=== PATIENT | female | born 1975 | race Caucasian/White ===

== ENCOUNTER → 2020-09-22 01:40 | Outpatient (CLI) | payer OTHER, SELFPAY ==
[2020-09-22 19:23] LABS: SARS-CoV-2 RNA PCR Negative
== END ==
PROVIDERS: PCP Emergency Medicine; Visit Provider Internal Medicine Gastroenterology
DX: Z01.812 Encounter for preprocedural laboratory examination (principal); Z20.822 Contact with and (suspected) exposure to COVID-19
CPT/HCPCS: C9803; U0003; U0005

== ENCOUNTER → 2021-01-05 12:13 | Outpatient (CLI) | payer OTHER, SELFPAY ==
--- NOTE | ~2021-01-05 | MR_ITS ---
EXAMINATION: MR brain/brain stem wo/w con DATE: 01/05/2021 13:43 INDICATION: Chronic migraine headaches. TECHNIQUE: Magnetic resonance imaging (MRI) of the brain and brainstem was performed without and with 12 mm MultiHance intravenous contrast. Sequences included sagittal and axial T1-weighted FSE, axial diffusion-weighted FS EPI, axial T2*-weighted GRE, axial T2-weighted FLAIR Propeller, and axial T2-we ighted Propeller. Postcontrast sequences included axial, sagittal, and coronal T1-weighted FSE. Appar ent diffusion coefficient (ADC) maps were created. COMPARISON: Brain MRI 02/03/2018, 07/26/2014 FINDINGS: The cerebellar tonsils extend 7 mm inferior to foramen magnum, consistent with a Chiari I m alformation. There is a 6 mm mass of fat in the hypothalamus. There are changes of mass resection in right temporal parietal region. There is no acute ischemic infarct or intracranial hemorrhage. The ve ntricles are normal in size. The orbits are normal. There is mucosal thickening in the paranasal sinu ses. The mastoid air cells are normal. IMPRESSION: 1. Changes of mass resection of right temporal parietal region. 2. Chiari I malformation. 3. 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 Reviewed, dictated and finalized at location B.
[2021-01-05 12:55] LABS: Estimated Glomerular Filt Rate > 60
== END ==
PROVIDERS: PCP Emergency Medicine
DX: G93.5 Compression of brain (principal); G43.709 Chronic migraine without aura, not intractable, without status migrainosus; E23.7 Disorder of pituitary gland, unspecified; Z98.890 Other specified postprocedural states
CPT/HCPCS: 70553; A9577

== ENCOUNTER → 2021-09-24 11:15 | Outpatient (CLI) | payer OTHER, SELFPAY ==
--- NOTE | ~2021-09-24 | US_ITS ---
EXAMINATION: US abdomen complete DATE: 09/24/2021 11:54 INDICATION: Elevated bilirubin TECHNIQUE: Multiple grayscale and Doppler ultrasound images of the abdomen were obtained. COMPARISON: 10/23/1999 FINDINGS: The head, body, and tail of the pancreas are normal. The liver is normal with normal echoge nicity and echotexture. No surface nodularity. Normal hepatopetal flow in the main portal vein. The g allbladder is surgically absent. The normal common bile duct measures 6 mm. There was no sonographic Avalos sign. The visualized portions of the aorta and inferior vena cava are normal. The right kidney measures 10.1 x 3.6 x 4.2 cm. The left kidney measures 9 x 5.4 x 4 cm. The kidneys d emonstrate normal parenchymal echogenicity. There is no hydronephrosis. The spleen is normal in appea marcial and measures 11.4 cm. IMPRESSION: 1. No sonographic correlate for the patient's symptoms. Reviewed, dictated and finalized at location B.
== END ==
PROVIDERS: PCP Emergency Medicine; Visit Provider Emergency Medicine
DX: K76.9 Liver disease, unspecified (principal)
CPT/HCPCS: 76700

== ENCOUNTER 2023-03-20 01:01 | Day surgery (SDC) | payer OTHER, SELFPAY ==
[2023-03-15 15:35] VITALS: BMI 25.7
[2023-03-20 07:56] VITALS: BP 124/82; PULSE 80; RESP 18; TEMP 36.1; O2SAT 100
[2023-03-20] MEDS: LACTATED RINGERS 1,000 ML 150 ML IV CONT (08:06)
--- NOTE | 2023-03-20 08:23 | PM.HPGS ---
History of Present Illness History of Present Illness Consent: Risks, benefits, and alternatives have been discussed and questions answered. Patient agrees to proceed with procedure. Chief complaint: GERD without esophagitis Narrative: Ronda Alonzo is a 47 year old female here for first EGD, had?UGI at another facility showed reflux and hiatal hernia now using omeprazole daily (20 mg but sometimes have to take an extra one) Review of Systems Constitutional: Constitutional: Denies headache(s) and Denies weakness Eyes: Eyes: Denies blurry vision ENT: Reports Normal hearing present, Denies headache(s) and Denies neck pain Cardiovascular: Cardiovascular: Denies chest pain and Denies dyspnea Respiratory: Respiratory: Denies dyspnea Gastrointestinal: Gastrointestinal: Reports no additional gastrointestinal complaints Genitourinary: Genitourinary: Denies dysuria Musculoskeletal: Musculoskeletal: Denies neck pain Integumentary/Breasts: Skin/Breast: Denies dry skin Neurologic: Reports Normal hearing present, Denies headache(s) and Denies weakness Psychiatric: Psychiatric: Denies anxiety Endocrine: Endocrine: Denies change in body appearance Hematologic/Lymphatic: Hematologic/Lymphatic: Denies easy bleeding Allergic/Immunologic: Allergic/Immunologic: Denies urticaria PMFSH Past Medical History Medical History (Updated 03/20/23 @ 08:24 by Ector Bland MD) Benign neoplasm of brain Chronic headaches Eruption cyst GERD (gastroesophageal reflux disease) Shoulder pain Spina bifida Social History Social History (Updated 07/13/20 @ 13:08 by Janett Franklin CMA) Smoking status: Never smoker Alcohol intake: current Drinks per week: 1 Substance use: current Substance use type: marijuana Other substance usage details: ON [facility] Living arrangements: with family Occupation/Education: occupation Gender identity (if verbalized by the patient): Female Spiritual care concerns: No Meds Home Medications and Allergies Home Medications Medication Instructions Recorded Confirmed Type omeprazole 20 mg capsule,delayed 20 mg PO DAILY 06/11/20 03/15/23 History release atogepant 30 mg tablet (Qulipta) 30 mg PO DAILY 03/15/23 03/15/23 History lisdexamfetamine 20 mg capsule 20 mg PO DAILY PRN ATTENTION 03/15/23 03/15/23 History (Franky) DEFICIT onabotulinumtoxinA 200 unit unit IM [id number] MIGRAINES 10/25/23 History solution for injection (Botox) rizatriptan 10 mg tablet 10 mg PO PRN PRN Migraine Headache 03/15/23 03/15/23 History tizanidine 2 mg capsule 2 mg PO PRN PRN MIGRAINES 03/15/23 03/15/23 History zolpidem 6.25 mg tablet,extended 6.25 mg PO HS PRN Insomnia 03/15/23 03/15/23 History release,multiphase Allergies Allergy/AdvReac Type Severity Reaction Status Date / Time Penicillins Allergy Mild Gastrointestinal Verified 03/20/23 07:56 Upset Vital Signs Vital Signs - 24 hr 03/20/23 07:56 Temperature 97 F L Pulse Rate 80 Respiratory Rate 18 Blood Pressure 124/82 Pulse Oximetry 100 Oxygen Delivery Room Air Exam Const: General: comfortable and no acute distress HENMT: Face/Nose/Sinus: Normal nares present Eyes: General: appearance normal, both eyes and all related structures Neck: Neck: no JVD Resp: Auscultation: clear to auscultation bilaterally Cardio: Rate: regular rate Rhythm: regular rhythm GI: Inspection: non-distended GI Palp: Yes Soft to palpation Skin: General skin exam: normal color Neuro: General: gait normal Speech: normal speech Extrem: General: normal to inspection Psych: Mental Status: mental status grossly normal Assessment and Plan Assessment and plan (1) GERD (gastroesophageal reflux disease): Code(s): K21.9 - Gastro-esophageal reflux disease without esophagitis Status: Acute Assessment and Plan: egd with bx
--- NOTE | 2023-03-20 08:33 | P.PNAN_ITS ---
Anes - Initial Pre Proc Eval Procedure: Operation Date: 03/20/23 09:00 Proposed Procedures p Esophagogastroduodenoscopy - Ector Bland MD Date/Time: 03/20/23 08:33 Surgeon: Ector Bland MD Pre Op Diagnosis: GERD without esophagitis Patient Data Age: 47 Gender: F Height: 1.6 m Weight: 67 kg Last Vital Signs Temp 97 F L 03/20/23 07:56 Pulse 80 03/20/23 07:56 Resp 18 03/20/23 07:56 BP 124/82 03/20/23 07:56 Pulse Ox 100 03/20/23 07:56 O2 Del Method Room Air 03/20/23 07:56 Allergies Allergy/AdvReac Type Severity Reaction Status Date / Time Penicillins Allergy Mild Gastrointestinal Verified 03/20/23 07:56 Upset Home Medications Medication Instructions Recorded Confirmed Type omeprazole 20 mg capsule,delayed 20 mg PO DAILY 06/11/20 03/15/23 History release atogepant 30 mg tablet (Qulipta) 30 mg PO DAILY 03/15/23 03/15/23 History lisdexamfetamine 20 mg capsule 20 mg PO DAILY PRN ATTENTION 03/15/23 03/15/23 History (Vyvanse) DEFICIT onabotulinumtoxinA 200 unit unit IM [id number] MIGRAINES 03/15/23 History solution for injection (Botox) rizatriptan 10 mg tablet 10 mg PO PRN PRN Migraine Headache 03/15/23 03/15/23 History tizanidine 2 mg capsule 2 mg PO PRN PRN MIGRAINES 03/15/23 03/15/23 History zolpidem 6.25 mg tablet,extended 6.25 mg PO HS PRN Insomnia 03/15/23 03/15/23 History release,multiphase Patient hx anesthesia problems: none Family hx anesthesia problems: none Results Review: All pre-operative results and documents have been reviewed as part of the pre- operative evaluation. [facility] Past Medical History Medical History (Updated 03/20/23 @ 08:24 by Ector Bland MD) Benign neoplasm of brain Chronic headaches Eruption cyst GERD (gastroesophageal reflux disease) Shoulder pain Spina bifida Social History Social History (Updated 07/13/20 @ 13:08 by NAUN Alves Smoking status: Never smoker Alcohol intake: current Drinks per week: 1 Substance use: current Substance use type: marijuana Other substance usage details: ON [facility] Living arrangements: with family Occupation/Education: occupation Gender identity (if verbalized by the patient): Female Spiritual care concerns: No Anes - Eval Final PreProcedure Day of Procedure 03/20/23 08:33 Patient weight: normal Heart: regular rate and rhythm Lungs: clear to auscultation Airway: Mallampati scale class II Neurological: alert and oriented Last oral intake: >/= 8 hours ASA classification: III Emergent: no Anesthetic plan: proceed Anesthesia type and monitoring: general GIVS and standard monitoring Results Review: All pre-operative results and documents have been reviewed as part of the pre- operative evaluation. Informed Consent: The patient's anesthetic plan and its attendant risks and benefits were discussed with the patient/family/POA. Questions were solicited and answers provided to the satisfaction of the patient/family/POA.
[2023-03-20 08:38] VITALS: BP 113/75; PULSE 81; RESP 30; O2SAT 98
[2023-03-20 08:48] VITALS: BP 118/85; PULSE 76; RESP 21; O2SAT 100
[2023-03-20 08:58] VITALS: BP 124/86; PULSE 71; RESP 17; O2SAT 100
== END 2023-03-20 09:07 | disposition home or self-care (01) ==
PROVIDERS: PCP Emergency Medicine; Visit Provider Internal Medicine Gastroenterology
PROC: 0DJ08ZZ Inspection of Upper Intestinal Tract, Via Natural or Artificial Opening Endoscopic (ICD-10-PCS; CPT 43235; principal; 2023-03-20 09:00)
DX: K21.9 Gastro-esophageal reflux disease without esophagitis (principal); K44.9 Diaphragmatic hernia without obstruction or gangrene; K29.50 Unspecified chronic gastritis without bleeding; R51.9 Headache, unspecified; F12.90 Cannabis use, unspecified, uncomplicated; Z86.011 Personal history of benign neoplasm of the brain
CPT/HCPCS: 43239; 88305; J2704; J7120